=== PATIENT | female | born 1990 | race Caucasian/White ===

== ENCOUNTER 2018-05-13 17:48 | Emergency (ER) | payer OTHER ==
--- NOTE | 2018-05-13 19:37 | ER ---
Nurse's Notes [facility] Name: Edilia Antonio Age: 28 yrs Sex: Female : 1990 Arrival Date: 05/13/2018 Time: 17:52 Bed 15 Private MD: Diagnosis: Diarrhea, unspecified Presentation: 05/13 18:12 Presenting complaint: Patient states: runny nose yesterday, diarrhea today. Reports aa5 generalized weakness. Denies N/V, denies cough, denies sore throat. Transition of care: patient was not received from another setting of care. Onset of symptoms was April 2018. Risk Assessment: Do you want to hurt yourself or someone else? Patient reports no desire to harm self or others. Initial Sepsis Screen: Does the patient meet any 2 criteria? No. Patient's initial sepsis screen is negative. Does the patient have a suspected source of infection? No. Patient's initial sepsis screen is negative. Care prior to arrival: None. 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 - Social history:: Smoking status: Patient/guardian denies using tobacco, Patient uses Patient/guardian denies using alcohol, street drugs, The patient lives with family. - Ebola Screening: : No symptoms or risks identified at this time. - Family history:: not pertinent. Screenin:40 Abuse screen: Denies threats or abuse. Nutritional screening: No deficits noted. ea Tuberculosis screening: No symptoms or risk factors identified. Fall Risk None identified. Assessment: 19:40 General: Appears in no apparent distress. Behavior is calm, cooperative, appropriate ea for age. Pain: Denies pain. Neuro: Level of Consciousness is awake, alert, obeys commands, Oriented to person, place, time, situation. Cardiovascular: Patient's skin is warm and dry. Respiratory: Airway is patent Respiratory effort is even, unlabored, Respiratory pattern is regular, symmetrical, Breath sounds are clear bilaterally. GI: Abdomen is non-distended. : No signs and/or symptoms were reported regarding the genitourinary system. EENT: Reports nasal congestion. Derm: Skin is pink, warm \T\ dry. 20:20 Reassessment: Patient and/or family updated on plan of care and expected duration. Pain ea level reassessed. Patient is alert, oriented x 3, equal unlabored respirations, skin warm/dry/pink. Discharge instructions given to patient, verbalized the understanding of instruction. Vital Signs: 18:15 BP 130 / 82; Pulse 79; Resp 18 S; Temp 97.4; Pulse Ox 99% on R/A; Weight 113.4 kg (R); aa5 Height 5 ft. 2 in. (157.48 cm) (R); Pain 0/10; 19:55 BP 128 / 70; Pulse 80; Resp 18; Pulse Ox 99% ; ea 20:15 BP 126 / 72; Pulse 78; Resp 18; Temp 97.6(O); Pulse Ox 98% on R/A; ea 18:15 Body Mass Index 45.73 (113.40 kg, 157.48 cm) aa5 ED Course: 17:52 Patient arrived in ED. rg4 18:13 Triage completed. aa5 18:13 Arm band placed on. aa5 19:14 Matt Castro MD is Attending Physician. ma2 19:35 Jenna Meléndez, RN is Primary Nurse. ph 19:40 Patient has correct armband on for positive identification. Bed in low position. Call ea light in reach. Side rails up X2. 20:22 No provider procedures requiring assistance completed. Patient did not have IV access ea during this emergency room visit. Administered Medications: 19:47 Drug: TORadol 60 mg Route: IM; Site: right gluteus; ph 20:15 Follow up: Response: No adverse reaction; Pain is decreased ea Outcome: 19:36 Discharge ordered by . ma2 20:22 Discharged to home ambulatory, with friend. ea 20:22 Condition: improved 20:22 Discharge instructions given to patient, Instructed on discharge instructions, follow up and referral plans. medication usage, Demonstrated understanding of instructions, follow-up care, medications, Prescriptions given X 1. 20:24 Patient left the ED. ea Signatures: Franci Scott RN RN aa5 Jenna Meléndez RN RN kevin Rivas, Nataliia rg4 Corrine Denis RN RN Matt Diaz MD MD ma2
--- NOTE | 2018-05-13 19:37 | EDPHYS ---
Physician Documentation [facility] Name: Edilia Antonio Age: 28 yrs Sex: Female : 1990 Arrival Date: 05/13/2018 Time: 17:52 Bed 15 Private MD: ED Physician Matt Castro HPI: 05/13 19:33 This 28 yrs old Female presents to ER via Ambulatory with complaints of Runny ma2 Nose, Diarrhea. 19:33 The patient or guardian reports cough. Onset: The symptoms/episode began/occurred ma2 gradually, 2 day(s) ago. Severity of symptoms: At their worst the symptoms were very mild, in the emergency department the symptoms are unchanged. Associated signs and symptoms: Pertinent positives: diarrhea, Pertinent negatives: chest pain, ear ache, fever, nausea, rhinorrhea, sore throat, vomiting. The patient has experienced similar episodes in the past. no diarrhea . 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 - Social history:: Smoking status: Patient/guardian denies using tobacco, Patient uses Patient/guardian denies using alcohol, street drugs, The patient lives with family. - Ebola Screening: : No symptoms or risks identified at this time. - Family history:: not pertinent. ROS: 19:33 Constitutional: Negative for fever, chills, and weight loss, Neck: Negative for injury, ma2 pain, and swelling, Cardiovascular: Negative for chest pain, palpitations, and edema, Respiratory: Negative for shortness of breath, cough, wheezing, and pleuritic chest pain, Abdomen/GI: Negative for abdominal pain, nausea, diarrhea, and constipation, Back: Negative for injury and pain, : Negative for injury, bleeding, discharge, and swelling, MS/Extremity: Negative for injury and deformity, Psych: Negative for depression, anxiety, suicide ideation, homicidal ideation, and hallucinations, Allergy/Immunology: Negative for hives, rash, and allergies. 19:33 All other systems are negative. ma2 Exam: 19:33 Constitutional: This is a well developed, well nourished patient who is awake, alert, ma2 and in no acute distress. Head/Face: Normocephalic, atraumatic. Neck: Trachea midline, no thyromegaly or masses palpated, and no cervical lymphadenopathy. Supple, full range of motion without nuchal rigidity, or vertebral point tenderness. No Meningismus. Chest/axilla: Normal chest wall appearance and motion. Nontender with no deformity. No lesions are appreciated. Cardiovascular: Regular rate and rhythm with a normal S1 and S2. No gallops, murmurs, or rubs. Normal PMI, no JVD. No pulse deficits. Respiratory: Lungs have equal breath sounds bilaterally, clear to auscultation and percussion. No rales, rhonchi or wheezes noted. No increased work of breathing, no retractions or nasal flaring. Abdomen/GI: Soft, non-tender, with normal bowel sounds. No distension or tympany. No guarding or rebound. No evidence of tenderness throughout. 19:33 ENT: Nares patent. No nasal discharge, no septal abnormalities noted. Tympanic ma2 membranes are normal and external auditory canals are clear. Oropharynx with no redness, swelling, or masses, exudates, or evidence of obstruction, uvula midline. Mucous membranes moist. MS/ Extremity: Pulses equal, no cyanosis. Neurovascular intact. Full, normal range of motion. Neuro: Awake and alert, GCS 15, oriented to person, place, time, and situation. Cranial nerves II-XII grossly intact. Motor strength 5/5 in all extremities. Sensory grossly intact. Cerebellar exam normal. Normal gait. Vital Signs: 18:15 BP 130 / 82; Pulse 79; Resp 18 S; Temp 97.4; Pulse Ox 99% on R/A; Weight 113.4 kg (R); aa5 Height 5 ft. 2 in. (157.48 cm) (R); Pain 0/10; 19:55 BP 128 / 70; Pulse 80; Resp 18; Pulse Ox 99% ; ea 20:15 BP 126 / 72; Pulse 78; Resp 18; Temp 97.6(O); Pulse Ox 98% on R/A; ea 18:15 Body Mass Index 45.73 (113.40 kg, 157.48 cm) aa5 MDM: 19:14 Patient medically screened. ma2 19:33 Differential Diagnosis: Obstructed Airway Bronchitis Upper Respiratory Infection Other ma2 gastroenteritis. Data reviewed: vital signs, nurses notes. Counseling: I had a detailed discussion with the patient and/or guardian regarding: the historical points, exam findings, and any diagnostic results supporting the discharge/admit diagnosis, the presence of at least one elevated blood pressure reading (>120/80) during this emergency department visit, the need for outpatient follow up. Response to treatment: the patient's symptoms have resolved after treatment. Administered Medications: 19:47 Drug: TORadol 60 mg Route: IM; Site: right gluteus; ph 20:15 Follow up: Response: No adverse reaction; Pain is decreased ea Disposition: 05/13/18 19:36 Discharged to Home. Impression: Diarrhea, unspecified. - Condition is Stable. - Discharge Instructions: Form - Excuse from Work, School, or Physical Activity. - Prescriptions for Tylenol- Codeine #3 300-30 mg Oral Tablet - take 2 tablet by ORAL route every 6 hours As needed; 30 tablet. - Work release form, Medication Reconciliation Form, Thank You Letter, Antibiotic Education, Prescription Opioid Use form. - Follow up: Private Physician; When: Tomorrow; Reason: Continuance of care. - Problem is new. - Symptoms are unchanged. Signatures: Franci Scott RN RN aa5 Jenna Meléndez RN RN Corrine Burt RN RN ea Alzahri, Mohammad, MD MD ma2 Corrections: (The following items were deleted from the chart) 20:24 19:36 05/13/2018 19:36 Discharged to Home. Impression: Diarrhea, unspecified. Condition ea is Stable. Forms are Medication Reconciliation Form, Thank You Letter, Antibiotic Education, Prescription Opioid Use. Follow up: Private Physician; When: Tomorrow; Reason: Continuance of care. Problem is new. Symptoms are unchanged. ma2
[2018-05-13] MEDS ORDERED: KETOROLAC 30 MG/ML INJ ONE (19:44)
== END 2018-05-13 20:24 | disposition home or self-care (01) ==
LOC: ER 17:48
DX: R19.7 Diarrhea, unspecified (principal)
CPT/HCPCS: 96372; 99283

== ENCOUNTER 2019-02-04 08:36 | Emergency (ER) | payer OTHER, SELFPAY ==
[2019-02-04 09:28] LABS: Absolute Lymphocytes (CBC) 2.9 K/uL (0.7-4.9); Basophils % 0.7 % (0-1.3); Eosinophils % 3.8 % (0-4.4); Hematocrit 39.2 % (36.0-45.0); Lymphocytes % 28.4 % (15.3-44.8); MPV 11.2 fL (7.6-11.3); RBC Red Blood Cell Count 4.85 M/uL (3.86-4.86)
[2019-02-04] MEDS ORDERED: NA CHLORIDE 0.9% 1,000 ML ONE (09:39)
[2019-02-04 11:38] LABS: ALT/SGPT 33 U/L (12-78); AST/SGOT 18 U/L (15-37); Albumin 3.4 g/dL (3.4-5.0); Alkaline Phosphatase 100 U/L (45-117); BUN Blood Urea Nitrogen 5 mg/dL (7-18); Bicarbonate 28 mmol/L (21-32); Bilirubin Direct 0.1 mg/dL (0-0.2); Bilirubin Total 0.4 mg/dL (0.2-1.0); Glucose Level 74 mg/dL (74-106); Potassium 3.4 mmol/L (3.5-5.1); Protein, Total 6.6 g/dL (6.4-8.2); Sodium Level 144 mmol/L (136-145)
--- NOTE | 2019-02-04 11:50 | EDPHYS ---
Physician Documentation [facility] Name: Edilia Antonio Age: 29 yrs Sex: Female : 1990 Arrival Date: 02/04/2019 Time: 08:38 Bed 14 Private MD: ED Physician Marquez Tracy HPI: 02/04 09:09 This 29 yrs old Female presents to ER via Ambulatory with complaints of kdr Nausea, Weakness. 09:10 The patient states that for the past three days, she has been feeling weak and kdr generally achy. She is concerned that she may have the flu or is anemic. She has no specific reason to suspect that she may be presently anemic as she has not been anemic in the past. She has no other focal concern.. Onset: The symptoms/episode began/occurred gradually, 3 day(s) ago. 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 - Social history:: Smoking status: Patient/guardian denies using tobacco. - Ebola Screening: : Patient denies exposure to infectious person Patient denies travel to an Ebola-affected area in the 21 days before illness onset. ROS: 11:50 Constitutional: Negative for fever, chills, and weight loss - she has felt generally kdr weak Eyes: Negative for injury, pain, redness, and discharge, ENT: Negative for injury, pain, and discharge, Neck: Negative for injury, pain, and swelling, Cardiovascular: Negative for chest pain, palpitations, and edema, Respiratory: Negative for shortness of breath, cough, wheezing, and pleuritic chest pain, Abdomen/GI: Negative for abdominal pain, nausea, vomiting, diarrhea, and constipation, Back: Negative for injury and pain, : Negative for injury, bleeding, discharge, and swelling, MS/Extremity: Negative for injury and deformity, Skin: Negative for injury, rash, and discoloration, Neuro: Negative for headache, weakness, numbness, tingling, and seizure activity. Psych: Negative for depression, anxiety, suicide ideation, homicidal ideation, and hallucinations, Allergy/Immunology: Negative for hives, rash, and allergies, Endocrine: Negative for neck swelling, polydipsia, polyuria, polyphagia, and marked weight changes, Hematologic/Lymphatic: Negative for swollen nodes, abnormal bleeding, and unusual bruising. Exam: 11:50 Constitutional: This is a well developed, well nourished patient who is awake, alert, kdr and in no acute distress. Head/Face: Normocephalic, atraumatic. Eyes: Pupils equal round and reactive to light, extra-ocular motions intact. Lids and lashes normal. Conjunctiva and sclera are non-icteric and not injected. Cornea within normal limits. Periorbital areas with no swelling, redness, or edema. Neck: Trachea midline, no thyromegaly or masses palpated, and no cervical lymphadenopathy. Supple, full range of motion without nuchal rigidity, or vertebral point tenderness. No Meningismus. Chest/axilla: Normal chest wall appearance and motion. Nontender with no deformity. No lesions are appreciated. Cardiovascular: Regular rate and rhythm with a normal S1 and S2. No gallops, murmurs, or rubs. Normal PMI, no JVD. No pulse deficits. Respiratory: Lungs have equal breath sounds bilaterally, clear to auscultation and percussion. No rales, rhonchi or wheezes noted. No increased work of breathing, no retractions or nasal flaring. Abdomen/GI: Soft, non-tender, with normal bowel sounds. No distension or tympany. No guarding or rebound. No evidence of tenderness throughout. Back: No spinal tenderness. No costovertebral tenderness. Full range of motion. Skin: Warm, dry with normal turgor. Normal color with no rashes, no lesions, and no evidence of cellulitis. MS/ Extremity: Pulses equal, no cyanosis. Neurovascular intact. Full, normal range of motion. Neuro: Awake and alert, GCS 15, oriented to person, place, time, and situation. Cranial nerves II-XII grossly intact. Motor strength 5/5 in all extremities. Sensory grossly intact. Cerebellar exam normal. Normal gait. Psych: Awake, alert, with orientation to person, place and time. Behavior, mood, and affect are within normal limits. Vital Signs: 08:57 BP 119 / 75; Pulse 78; Resp 16; Temp 97.6(TE); Pulse Ox 100% on R/A; Weight 92.99 kg; ss Height 5 ft. 2 in. (157.48 cm); Pain 6/10; 09:53 BP 111 / 78; Pulse 77; Resp 16; Pulse Ox 99% on R/A; Pain 4/10; ls4 10:39 BP 101 / 44; Pulse 65; Resp 17; Temp 97.9(TE); Pulse Ox 100% on R/A; mh5 12:28 BP 106 / 62; Pulse 66; Resp 16; Temp 97.8(O); Pulse Ox 99% on R/A; Pain 0/10; ls4 08:57 Body Mass Index 37.49 (92.99 kg, 157.48 cm) ss MDM: 11:49 Patient medically screened. kdr 11:51 Data reviewed: vital signs, nurses notes, lab test result(s). Counseling: I had a kdr detailed discussion with the patient and/or guardian regarding: the historical points, exam findings, and any diagnostic results supporting the discharge/admit diagnosis, lab results, the need for outpatient follow up. 02/04 09:04 Order name: Basic Metabolic Panel kdr 02/04 09:04 Order name: CBC with Diff; Complete Time: 10:20 kdr 02/04 09:04 Order name: Creatinine for Radiology; Complete Time: 11:32 kdr 02/04 09:04 Order name: Hepatic Function; Complete Time: 11:48 kdr 02/04 09:04 Order name: Flu; Complete Time: 10:20 kdr 02/04 09:07 Order name: Basic Metabolic Panel; Complete Time: 11:48 EDMS 02/04 09:04 Order name: IV Saline Lock; Complete Time: 09:22 kdr 02/04 09:04 Order name: Labs collected and sent; Complete Time: 09:22 kdr 02/04 09:43 Order name: Labs - recollect needed; Complete Time: 11:10 bd Administered Medications: 09:30 Drug: NS 0.9% 1000 ml Route: IV; Rate: 1 bolus; Site: right antecubital; ls4 11:30 Follow up: IV Status: Completed infusion; IV Intake: 1000ml ls4 Disposition: 02/04/19 11:49 Discharged to Home. Impression: Weakness, Malaise and fatigue. - Condition is Stable. - Discharge Instructions: Fatigue, Weakness, [id number]. - Medication Reconciliation Form, Thank You Letter, Work release form form. - Follow up: Private Physician; When: 2 - 3 days; Reason: If symptoms return, Further diagnostic work-up, Recheck today's complaints, Continuance of care, Re-evaluation by your physician. - Problem is new. - Symptoms have improved. Signatures: Dispatcher [employer] EDAL Milena Walters Kevin, MD MD kdr Salina West RN RN ss Demetrice Beebe RN RN ls4 Corrections: (The following items were deleted from the chart) 12:30 11:49 02/04/2019 11:49 Discharged to Home. Impression: Weakness; Malaise and fatigue. ls4 Condition is Stable. Forms are Medication Reconciliation Form, Thank You Letter, Antibiotic Education, Prescription Opioid Use. Follow up: Private Physician; When: 2 - 3 days; Reason: If symptoms return, Further diagnostic work-up, Recheck today's complaints, Continuance of care, Re-evaluation by your physician. Problem is new. Symptoms have improved. kdr
--- NOTE | 2019-02-04 11:50 | ER ---
Nurse's Notes [facility] Name: Edilia Antonio Age: 29 yrs Sex: Female : 1990 Arrival Date: 02/04/2019 Time: 08:38 Bed 14 Private MD: Diagnosis: Weakness;Malaise and fatigue Presentation: 02/04 08:56 Presenting complaint: Patient states: nausea, fatigue, headache and sinus congestion x ss 2 days. Pt states, "I don't know if I'm or if it's because of my gastric sleeve or the flu or what.". Transition of care: patient was not received from another setting of care. Onset of symptoms was February 03, 2019. Risk Assessment: Do you want to hurt yourself or someone else? Patient reports no desire to harm self or others. Initial Sepsis Screen: Does the patient meet any 2 criteria? No. Patient's initial sepsis screen is negative. Does the patient have a suspected source of infection? No. Patient's initial sepsis screen is negative. Care prior to arrival: None. 08:56 Method Of Arrival: Ambulatory ss 08:56 Acuity: SUMAYA 3 ss Triage Assessment: 09:18 General: Appears in no apparent distress. Behavior is calm, cooperative. Pain: ls4 Complains of pain in generalized Pain currently is 6 out of 10 on a pain scale. Quality of pain is described as aching. Neuro: No deficits noted. Cardiovascular: No deficits noted. Respiratory: No deficits noted. GI: Reports nausea. : No deficits noted. Derm: No deficits noted. Musculoskeletal: No deficits noted. 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 - Social history:: Smoking status: Patient/guardian denies using tobacco. - Ebola Screening: : Patient denies exposure to infectious person Patient denies travel to an Ebola-affected area in the 21 days before illness onset. Screenin:21 Abuse screen: Denies threats or abuse. Denies injuries from another. Nutritional ls4 screening: No deficits noted. Tuberculosis screening: No symptoms or risk factors identified. Fall Risk None identified. Assessment: 09:32 General: Appears in no apparent distress. GI: Abdomen is non-distended, Bowel sounds ls4 present X 4 quads. Abd is soft and non tender X 4 quads. 09:52 Reassessment: Patient and/or family updated on plan of care and expected duration. Pain ls4 level reassessed. Patient is alert, oriented x 3, equal unlabored respirations, skin warm/dry/pink. Vital Signs: 08:57 BP 119 / 75; Pulse 78; Resp 16; Temp 97.6(TE); Pulse Ox 100% on R/A; Weight 92.99 kg; ss Height 5 ft. 2 in. (157.48 cm); Pain 6/10; 09:53 BP 111 / 78; Pulse 77; Resp 16; Pulse Ox 99% on R/A; Pain 4/10; ls4 10:39 BP 101 / 44; Pulse 65; Resp 17; Temp 97.9(TE); Pulse Ox 100% on R/A; mh5 12:28 BP 106 / 62; Pulse 66; Resp 16; Temp 97.8(O); Pulse Ox 99% on R/A; Pain 0/10; ls4 08:57 Body Mass Index 37.49 (92.99 kg, 157.48 cm) ED Course: 08:38 Patient arrived in ED. mr 08:44 Marquez Tracy MD is Attending Physician. kdr 08:57 Triage completed. ss 08:57 Arm band placed on right wrist. 09:05 Demetrice Beebe, ANDREW is Primary Nurse. ls4 09:20 No provider procedures requiring assistance completed. Initial lab(s) drawn, by nv, ls4 sent to lab. Inserted saline lock: 20 gauge in right antecubital area, using aseptic technique. Blood collected. 09:21 Patient has correct armband on for positive identification. Placed in gown. Bed in low ls4 position. Call light in reach. Side rails up X 1. 09:22 Basic Metabolic Panel Sent. ls4 12:29 IV discontinued, intact, bleeding controlled, No redness/swelling at site. Pressure ls4 dressing applied. Administered Medications: 09:30 Drug: NS 0.9% 1000 ml Route: IV; Rate: 1 bolus; Site: right antecubital; ls4 11:30 Follow up: IV Status: Completed infusion; IV Intake: 1000ml ls4 Intake: 11:30 IV: 1000ml; Total: 1000ml. ls4 Outcome: 11:49 Discharge ordered by . kdr 12:29 Condition: stable ls4 12:29 Discharge instructions given to patient, Instructed on discharge instructions, follow up and referral plans. medication usage, safety practices, Demonstrated understanding of instructions, follow-up care, medications. 12:30 Discharged to home ambulatory. ls4 12:30 Patient left the ED. ls4 Signatures: Marquez Tracy MD MD kdr Rivera, Mary mr Smirch, Shelby, Judith Mcfadden RN [facility] Demetrice Beebe RN RN ls4
== END 2019-02-04 12:30 | disposition home or self-care (01) ==
LOC: ER 08:36
DX: R53.1 Weakness (principal); R53.83 Other fatigue; R53.81 Other malaise
CPT/HCPCS: 36415; 80048; 80076; 85025; 87804; 96360; 96361; 99284; J7030

== ENCOUNTER 2019-05-01 16:34 | Emergency (ER) | payer SELFPAY ==
[2019-05-01 19:01] LABS: Basophils % 0.4 % (0-1.3); Hematocrit 36.4 % (36.0-45.0); Lymphocytes % 29.2 % (15.3-44.8); MPV 11.5 fL (7.6-11.3); RBC Red Blood Cell Count 4.28 M/uL (3.86-4.86)
[2019-05-01 19:18] LABS: BUN Blood Urea Nitrogen 7 mg/dL (7-18); Bicarbonate 28 mmol/L (21-32); Glucose Level 70 mg/dL (74-106); Potassium 3.2 mmol/L (3.5-5.1); Sodium Level 144 mmol/L (136-145)
[2019-05-01] MEDS ORDERED: POTASSIUM CL SA 10 MEQ TAB PO ONE (19:31)
--- NOTE | 2019-05-01 19:31 | ER ---
Nurse's Notes [facility] Name: Edilia Antonio Age: 29 yrs Sex: Female : 1990 Arrival Date: 05/01/2019 Time: 16:36 Bed 25 Private MD: Diagnosis: Hemorrhoids;Rectal bleeding Presentation: 05/01 16:54 Presenting complaint: Patient states: has hemorrhoids, rectal bleeding that's like a iw period since yesterday, also having pelvic pain. Transition of care: patient was not received from another setting of care. Onset of symptoms was April 24, 2019. Risk Assessment: Do you want to hurt yourself or someone else? Patient reports no desire to harm self or others. Initial Sepsis Screen: Does the patient meet any 2 criteria? No. Patient's initial sepsis screen is negative. Does the patient have a suspected source of infection? No. Patient's initial sepsis screen is negative. Care prior to arrival: None. 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 - Social history:: Smoking status: Patient/guardian denies using tobacco. - Ebola Screening: : Patient negative for fever greater than or equal to 101.5 degrees Fahrenheit, and additional compatible Ebola Virus Disease symptoms Patient denies exposure to infectious person Patient denies travel to an Ebola-affected area in the 21 days before illness onset No symptoms or risks identified at this time. Screenin:56 Abuse screen: Denies threats or abuse. Denies injuries from another. Nutritional mg2 screening: No deficits noted. Tuberculosis screening: No symptoms or risk factors identified. Fall Risk IV access (20 points). Assessment: 18:55 General: Appears in no apparent distress. comfortable, Behavior is calm, cooperative. mg2 Pain: Complains of pain in anal area Pain does not radiate. Pain currently is 4 out of 10 on a pain scale. Quality of pain is described as aching, Pain began gradually, 1 day ago. Is intermittent. Neuro: Level of Consciousness is awake, alert, obeys commands, Oriented to person, place, time, situation. Cardiovascular: Capillary refill < 3 seconds Patient's skin is warm and dry. Respiratory: Airway is patent Respiratory effort is even, unlabored, Respiratory pattern is regular, symmetrical. GI: Reports rectal bleeding. : No signs and/or symptoms were reported regarding the genitourinary system. EENT: No signs and/or symptoms were reported regarding the EENT system. Derm: Skin is intact, is healthy with good turgor, Skin is pink, warm \T\ dry. normal. Musculoskeletal: Circulation, motion, and sensation intact. Capillary refill < 3 seconds. 19:46 Reassessment: Patient appears in no apparent distress at this time. mg2 Vital Signs: 16:57 BP 106 / 72; Pulse 85; Resp 16; Temp 98.2; Pulse Ox 100% on R/A; Weight 90.72 kg; iw Height 5 ft. 2 in. (157.48 cm); Pain 4/10; 18:57 BP 112 / 68; Pulse 80; Resp 18; Pulse Ox 100% on R/A; mg2 16:57 Body Mass Index 36.58 (90.72 kg, 157.48 cm) iw ED Course: 16:36 Patient arrived in ED. rg4 16:56 Triage completed. iw 16:57 Arm band placed on. iw 17:47 Abilio Portillo PA is PHCP. jr8 17:47 Matt Castro MD is Attending Physician. jr8 18:31 Antelmo Sin RN is Primary Nurse. mg2 18:57 Patient has correct armband on for positive identification. Placed in gown. Bed in low mg2 position. Call light in reach. Side rails up X 1. Pulse ox on. NIBP on. 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 Inserted saline lock: 20 gauge in left mg2 antecubital area, using aseptic technique. Blood collected. 19:28 Mihir Jacobs MD is Referral Physician. jr8 19:46 IV discontinued, intact, bleeding controlled, No redness/swelling at site. Pressure mg2 dressing applied. Administered Medications: 19:33 Drug: Potassium Chloride 20 mEq Route: PO; mg2 19:33 Follow up: Response: No adverse reaction mg2 Outcome: 19:30 Discharge ordered by MD. [email or web address] 19:46 Discharged to home ambulatory. mg2 19:46 Condition: stable 19:46 Discharge instructions given to patient, Instructed on discharge instructions, follow up and referral plans. medication usage, Demonstrated understanding of instructions, follow-up care, medications, Prescriptions given X 1. 19:46 Patient left the ED. mg2 Signatures: Melissa Brush RN RN iw Abilio Portillo PA PA jr8 Nataliia Rivas 4 Antelmo Sin RN RN mg2
--- NOTE | 2019-05-01 19:32 | EDPHYS ---
Physician Documentation [facility] Name: Edilia Antonio Age: 29 yrs Sex: Female : 1990 Arrival Date: 05/01/2019 Time: 16:36 Bed 25 Private MD: ED Physician Matt Castro HPI: 05/01 17:56 This 29 yrs old Female presents to ER via Ambulatory with complaints of jr8 Hemorrhoids. 17:56 The patient presents to the emergency department with bleeding from the rectum/anus, jr8 that is mild. Onset: The symptoms/episode began/occurred acutely, today. Context: the patient has a known history of hemorrhoids. Modifying factors: The symptoms are alleviated by nothing, The symptoms are aggravated by bowel movement. Associate signs and symptoms: The patient has no apparent associated signs or symptoms. The patient has experienced a previous episode. The patient has not recently seen a physician. Patient with history of hemorrhoids. Stated that she thinks she is having problems with them again. Had bowel movement earlier that resulted in blood in toilet. 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 - Social history:: Smoking status: Patient/guardian denies using tobacco. - Ebola Screening: : Patient negative for fever greater than or equal to 101.5 degrees Fahrenheit, and additional compatible Ebola Virus Disease symptoms Patient denies exposure to infectious person Patient denies travel to an Ebola-affected area in the 21 days before illness onset No symptoms or risks identified at this time. ROS: 17:56 Eyes: Negative for injury, pain, redness, and discharge, ENT: Negative for injury, jr8 pain, and discharge, Neck: Negative for injury, pain, and swelling, Cardiovascular: Negative for chest pain, palpitations, and edema, Respiratory: Negative for shortness of breath, cough, wheezing, and pleuritic chest pain, Back: Negative for injury and pain, MS/Extremity: Negative for injury and deformity, Skin: Negative for injury, rash, and discoloration, Neuro: Negative for headache, weakness, numbness, tingling, and seizure. 17:56 Abdomen/GI: Positive for rectal bleeding, Negative for abdominal pain, nausea, vomiting, and diarrhea, diarrhea, constipation, abdominal cramps, abdominal distension, anorexia, dysphagia, hematemesis, black/tarry stool, rectal pain, bowel incontinence, flatulence. Exam: 17:56 Eyes: Pupils equal round and reactive to light, extra-ocular motions intact. Lids and jr8 lashes normal. Conjunctiva and sclera are non-icteric and not injected. Cornea within normal limits. Periorbital areas with no swelling, redness, or edema. ENT: Nares patent. No nasal discharge, no septal abnormalities noted. Tympanic membranes are normal and external auditory canals are clear. Oropharynx with no redness, swelling, or masses, exudates, or evidence of obstruction, uvula midline. Mucous membranes moist. Neck: Trachea midline, no thyromegaly or masses palpated, and no cervical lymphadenopathy. Supple, full range of motion without nuchal rigidity, or vertebral point tenderness. No Meningismus. Cardiovascular: Regular rate and rhythm with a normal S1 and S2. No gallops, murmurs, or rubs. Normal PMI, no JVD. No pulse deficits. Respiratory: Lungs have equal breath sounds bilaterally, clear to auscultation and percussion. No rales, rhonchi or wheezes noted. No increased work of breathing, no retractions or nasal flaring. Back: No spinal tenderness. No costovertebral tenderness. Full range of motion. Skin: Warm, dry with normal turgor. Normal color with no rashes, no lesions, and no evidence of cellulitis. MS/ Extremity: Pulses equal, no cyanosis. Neurovascular intact. Full, normal range of motion. Neuro: Awake and alert, GCS 15, oriented to person, place, time, and situation. Cranial nerves II-XII grossly intact. Motor strength 5/5 in all extremities. Sensory grossly intact. Cerebellar exam normal. Normal gait. 17:56 Abdomen/GI: Inspection: abdomen appears normal, Bowel sounds: active, all quadrants, Palpation: abdomen is soft and non-tender, in all quadrants, mass, is not appreciated, rebound tenderness, is not appreciated, voluntary guarding, is not appreciated, involuntary guarding, is not appreciated, no appreciated organomegaly, Rectal exam: rectal tone normal, Stool: normal, brown, guaiac negative, hemorrhoid(s), external, without bleeding, without inflammation, without thrombosis, without pain, mass, is not appreciated, swelling, is not appreciated, tenderness, that is mild, fecal impaction, is not appreciated, the exam is chaperoned by the nurse, Indicators: McBurney's point is not tender, Molina's sign is negative, Rovsing's sign is negative, Liver: tenderness, is not appreciated. Vital Signs: 16:57 BP 106 / 72; Pulse 85; Resp 16; Temp 98.2; Pulse Ox 100% on R/A; Weight 90.72 kg; iw Height 5 ft. 2 in. (157.48 cm); Pain 4/10; 18:57 BP 112 / 68; Pulse 80; Resp 18; Pulse Ox 100% on R/A; mg2 16:57 Body Mass Index 36.58 (90.72 kg, 157.48 cm) iw MDM: 17:50 Patient medically screened. jr8 19:20 Data reviewed: vital signs, nurses notes, lab test result(s), and as a result, I will jr8 discharge patient. Data interpreted: Pulse oximetry: on room air is 100 %. Interpretation: normal. 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 ED course: Normal H/H. Guiac negative. No gross bleeding. Will have patient f/u with GI. 05/01 17:55 Order name: CBC with Diff; Complete Time: 19:20 8 05/01 17:55 Order name: Basic Metabolic Panel; Complete Time: 19:20 [facility] 05/01 17:55 Order name: IV; Complete Time: 18:43 jr8 Administered Medications: 19:33 Drug: Potassium Chloride 20 mEq Route: PO; mg2 19:33 Follow up: Response: No adverse reaction mg2 Disposition: 05/01/19 19:30 Discharged to Home. Impression: Hemorrhoids, Rectal bleeding. - Condition is Stable. - Discharge Instructions: Hemorrhoids. - Prescriptions for Anusol- HC 25 mg Rectal Suppository - insert 1 suppository by RECTAL route every 12 hours As needed; 20 suppository. - Medication Reconciliation Form, Thank You Letter, Antibiotic Education, Prescription Opioid Use, Work release form form. - Follow up: Mihir Jacobs MD; When: 5 - 6 days; Reason: Recheck today's complaints, Continuance of care, Re-evaluation by your physician. - Problem is new. - Symptoms have improved. Addendum: 05/05/2019 15:55 Co-signature as Attending Physician, Matt Castro MD. m a2 Signatures: Dispatcher [employer] EDMS Melissa Brush RN RN iw Abilio Portillo PA PA jr8 Matt Castro MD MD ma2 Antelmo Sin RN RN mg2 Corrections: (The following items were deleted from the chart) 05/01 19:46 19:30 05/01/2019 19:30 Discharged to Home. Impression: Hemorrhoids; Rectal bleeding. mg2 Condition is Stable. Forms are Medication Reconciliation Form, Thank You Letter, Antibiotic Education, Prescription Opioid Use. Follow up: Mihir Jacobs; When: 5 - 6 days; Reason: Recheck today's complaints, Continuance of care, Re-evaluation by your physician. Problem is new. Symptoms have improved. jr8
[2019-05-01 21:24] VITALS: TEMP 98.2; O2SAT 100
[2019-05-01 21:25] VITALS: BP 112/68
== END 2019-05-01 19:46 | disposition home or self-care (01) ==
LOC: ER 16:34
DX: K64.9 Unspecified hemorrhoids (principal)
CPT/HCPCS: 36415; 80048; 85025; 99284